=== PATIENT | male | born 1970 | race Caucasian/White ===

== ENCOUNTER 2019-05-17 18:39 | Emergency (ER) | payer OTHER, BC ==
[~2019-05-17] VITALS: Ht 180.3 cm; Wt 86.0 kg
[2019-05-17] MEDS ORDERED: MORPHINE SULFATE 10 MG/ML CPJ IM ONE (19:45)
[2019-05-17] MEDS ORDERED: KETOROLAC 60MG/2ML VIAL IM ONE (19:45)
[2019-05-17 21:48] VITALS: BP 143/95
== END 2019-05-17 21:50 | disposition home or self-care (01) ==
LOC: ER 18:39
DX: S20.212A Contusion of left front wall of thorax, initial encounter (principal); F41.9 Anxiety disorder, unspecified; E03.9 Hypothyroidism, unspecified; V49.49XA Driver injured in collision with other motor vehicles in traffic accident, initial encounter; Y93.89 Activity, other specified; Y92.89 Other specified places as the place of occurrence of the external cause; Y99.8 Other external cause status
CPT/HCPCS: 71101; 96372; 99284; J1885; J2270